=== PATIENT | male | born 1980 | race Hispanic/Latino ===

== ENCOUNTER 2023-02-25 10:52 | Emergency (ER) | payer SELFPAY ==
--- NOTE | 2023-02-25 11:18 | EDPHYS ---
Physician Documentation [facility] Name: Byron Zapata Age: 42 yrs Sex: Male : 1980 Arrival Date: 02/25/2023 Time: 10:52 Bed IW3 Private MD: ED Physician Lobo Hanson HPI: 02/25 11:15 This 42 yrs old Male presents to ER via Ambulatory with complaints of rn Abdominal Pain. 11:15 The patient presents with abdominal pain in the left lower quadrant. Onset: The rn symptoms/episode began/occurred 5 day(s) ago. The symptoms do not radiate. Associated signs and symptoms: Pertinent positives: constipation, Pertinent negatives: nausea and vomiting. The symptoms are described as crampy, sharp. Modifying factors: The symptoms are alleviated by nothing, the symptoms are aggravated by pressure. Severity of pain: At its worst the pain was mild in the emergency department the pain is unchanged. The patient has experienced a previous episode. Patient reports left lower quadrant abdominal pain that began 5 days ago. States identical to last episode states similar to last episode of diverticulitis. Reports last episode was more severe and in a lot more pain, did not require surgical intervention and there was no perforation. Reports this time feels like it is just getting started. No fever, no vomiting. Reports constipation similar to the last time. Currently in rehab facility. Patient request antibiotics and does not want any further work-up.. Historical: - Allergies: 11:12 No Known Allergies; iw - Immunization history:: Adult Immunizations unknown. - Family history:: not pertinent. - Social history:: Smoking status: unknown. - Hospitalizations: : No recent hospitalization is reported. ROS: 11:15 Constitutional: Negative for fever, chills, and weight loss, Cardiovascular: Negative rn for chest pain, palpitations, and edema, Respiratory: Negative for shortness of breath, cough, wheezing, and pleuritic chest pain, Abdomen/GI: Positive for abdominal pain and constipation Back: Negative for injury and pain, : Negative for injury, bleeding, discharge, and swelling, MS/Extremity: Negative for injury and deformity, Skin: Negative for injury, rash, and discoloration, Neuro: Negative for headache, weakness, numbness, tingling, and seizure, Exam: 11:15 Constitutional: This is a well developed, well nourished patient who is awake, alert, rn and in no acute distress. Cardiovascular: Regular rate and rhythm. No pulse deficits. Respiratory: No increased work of breathing, no retractions or nasal flaring. Abdomen/GI: Soft, mild left lower quadrant tenderness, no guarding, no rebound no distention Vital Signs: 11:12 BP 122 / 99; Pulse 87; Resp 16; Temp 98.6; Pulse Ox 100% ; iw MDM: 11:01 Patient medically screened. rn 11:15 Differential diagnosis: diverticulitis, non-specific abd pain. Differential diagnosis: rn Colitis, proctitis. Data reviewed: vital signs, nurses notes. Counseling: I had a detailed discussion with the patient and/or guardian regarding the historical points, exam findings, and any diagnostic results supporting the discharge/admit diagnosis, the need for outpatient follow up, to return to the emergency department if symptoms worsen or persist or if there are any questions or concerns that arise at home. Special discussion: Based on the patient's Hx, exam, and Dx evaluation, there is no indication for emergent surgery or inpatient Tx. It is understood by the patient/guardian that if the Sx's persist or worsen they need to return immediately for re-evaluation. I discussed with the patient/guardian in detail that at this point there is no indication for admission to the hospital. It is understood, however, that if the symptoms persist or worsen the patient needs to return immediately for re-evaluation. ED course: Patient states this is not as painful as other episode of diverticulitis. Patient does not want CT scan or blood work. Prefers a prescription for antibiotics and states will return if gets worse for CT scan.. Administered Medications: No medications were administered Disposition Summary: 02/25/23 11:18 Discharge Ordered Notes: Location: Home rn Problem: new rn Symptoms: have improved rn Condition: Stable rn Diagnosis - Lower abdominal pain, unspecified rn - Diverticulitis of large intestine without perforation or abscess without bleeding rn Followup: rn - With: Private Physician - When: As needed - Reason: Recheck today's complaints, Re-evaluation by your physician Discharge Instructions: - Discharge Summary Sheet rn - Abdominal Pain, Adult rn - Diverticulitis rn Forms: - Medication Reconciliation Form rn - Thank You Letter rn - Antibiotic director maternal child - Prescription Opioid Use rn - Patient Portal Instructions rn - Leadership Thank You Letter rn Prescriptions: - ondansetron 4 mg Oral Tablet,disintegrating - take 1 tablet ORAL route every 8 hours As needed; 10 tablet; Refills: 0, rn Product Selection Permitted - Flagyl 500 mg Oral Tablet - take 1 tablet ORAL route every 8 hours for 10 days; 30 tablet; Refills: 0, rn Product Selection Permitted - Cipro 500 mg Oral tablet - take 1 tablet ORAL route every 12 hours for 10 days; 20 tablet; Refills: 0, rn Product Selection Permitted Signatures: Jocelynn Alvarez RN RN iw Lobo Hanson MD MD rn
--- NOTE | 2023-02-25 11:18 | ER ---
Nurse's Notes [facility] Name: Byron Zapata Age: 42 yrs Sex: Male : 1980 Arrival Date: 02/25/2023 Time: 10:52 Bed IW3 Private MD: Diagnosis: Lower abdominal pain, unspecified;Diverticulitis of large intestine without perforation or abscess without bleeding Presentation: 02/25 11:12 Chief complaint: Patient states: mid abd pain X 5 days, hx of diverticulitis. iw Coronavirus screen: At this time, the client does not indicate any symptoms associated with coronavirus-19. Ebola Screen: Patient negative for fever greater than or equal to 101.5 degrees Fahrenheit, and additional compatible Ebola Virus Disease symptoms Patient denies exposure to infectious person. Patient denies travel to an Ebola-affected area in the 21 days before illness onset. No symptoms or risks identified at this time. 11:12 Method Of Arrival: Ambulatory iw 11:12 Initial Sepsis Screen: Does the patient meet any 2 criteria? No. Patient's initial iw sepsis screen is negative. Does the patient have a suspected source of infection? No. Patient's initial sepsis screen is negative. Risk Assessment: Do you want to hurt yourself or someone else? Patient reports no desire to harm self or others. Onset of symptoms was February 20, 2023. 11:12 Acuity: GISELA 4 iw Historical: - Allergies: 11:12 No Known Allergies; iw - Immunization history:: Adult Immunizations unknown. - Family history:: not pertinent. - Social history:: Smoking status: unknown. - Hospitalizations: : No recent hospitalization is reported. Screenin:14 [facility] ED Fall Risk Assessment (Adult) Score/Fall Risk Level 0 - 2 = Low Risk. Abuse iw screen:. Nutritional screening: No deficits noted. Tuberculosis screening: No symptoms or risk factors identified. Assessment: 11:13 General: Appears in no apparent distress. Behavior is calm, cooperative. Pain: iw Complains of pain in abdomen. Neuro: Level of Consciousness is awake, alert, obeys commands, Oriented to person, place, time, situation, Moves all extremities. Full function. Cardiovascular: Patient's skin is warm and dry. Respiratory: Respiratory effort is even, unlabored, Respiratory pattern is regular, symmetrical. GI: Abdomen is flat, non-distended. Derm: Skin is intact, is healthy with good turgor. Musculoskeletal: Range of motion: intact in all extremities. Vital Signs: 11:12 BP 122 / 99; Pulse 87; Resp 16; Temp 98.6; Pulse Ox 100% ; iw ED Course: 10:57 Patient arrived in ED. iw 11:01 Lobo Hanson MD is Attending Physician. rn 11:12 Triage completed. iw 11:13 Arm band placed on. iw 11:14 Jocelynn Alvarez RN is Primary Nurse. iw 11:14 Patient has correct armband on for positive identification. Provided Education on: abx iw use. 11:14 No provider procedures requiring assistance completed. Patient did not have IV access iw during this emergency room visit. Administered Medications: No medications were administered Medication: 11: VIS not applicable for this client. iw Outcome: 11:18 Discharge ordered by MD. rn 11:25 Discharged to home ambulatory, iw 11:25 Condition: good 11:25 Discharge instructions given to patient, Instructed on discharge instructions, follow up and referral plans. medication usage, Demonstrated understanding of instructions, follow-up care, medications, Prescriptions given X 3, 11:26 Patient left the ED. iw Signatures: Jocelynn Alvarez RN RN iw Lobo Hanson MD MD modern and contemporary art curator: (The following items were deleted from the chart) 11:13 11:12 Pulse 87bpm; Resp 16bpm; Pulse Ox 100%; Temp 98.6F; iw iw 11:14 11:12 Acuity: GISELA 3 iw iw
[2023-02-25 11:35] VITALS: BP 122/99; TEMP 98.6; O2SAT 100
== END 2023-02-25 11:26 | disposition home or self-care (01) ==
LOC: ER 10:52
DX: K57.32 Diverticulitis of large intestine without perforation or abscess without bleeding (principal)
CPT/HCPCS: 99283